=== PATIENT | female | born 1955 | race Two or more races ===

== ENCOUNTER 2024-08-23 14:16 | Outpatient (CLI) | payer OTHER | END 2024-08-23 14:20 | disposition home or self-care (01) | LOC: RAD 14:16 | PROVIDERS: ATTEND Orthopaedic Surgery Orthopaedic Trauma | DX: Z01.811 Encounter for preprocedural respiratory examination (principal) ==

== ENCOUNTER 2025-01-17 14:14 | Outpatient (CLI) | payer OTHER | END 2025-01-17 14:23 | disposition home or self-care (01) | LOC: RAD 14:14 | PROVIDERS: ATTEND General Practice | DX: M25.562 Pain in left knee (principal); M25.561 Pain in right knee ==

== ENCOUNTER 2025-02-08 08:33 | Outpatient (CLI) | payer OTHER ==
[2025-02-08 09:52] LABS: URINE APPEARANCE Clear; URINE BILIRRUBIN Negative (NEGATIVE); URINE BLOOD Negative; URINE COLOR Yellow; URINE KETONE Negative (NEGATIVE); URINE LEUKOCYTE Negative; URINE NITRATE Negative; URINE UROBILINOGEN 0.2 E.U./dl
[2025-02-08 09:53] LABS: URINE BACTERIA 19.2 uL (0.0-1933); URINE EPITHELIAL CELLS 7.9 uL (0.0-38.8); URINE WBC 2.0 uL (0.0-23.2)
[2025-02-08 10:05] LABS: URINE CAST 0.58 uL (0.0-1.40); URINE GLUCOSE >=1000 MG/DL (NEGATIVE); URINE PROTEIN 100 (NEGATIVE); URINE RBC 0.8 uL (0.0-20.8)
[2025-02-08 10:11] LABS: BASO % 0.7 % (0.1-1.2); EOS # 0.11 (0.04-0.54); EOS % 1.5 % (0.7-7.0); LYMPH # 3.07 (1.18-3.74); LYMPH % 41.2 % (19.3-53.1); MEAN PLATELET VOLUME 11.20 fl (9.4-12.4); MONO # 0.65 (0.24-0.82); MONO % 8.7 % (4.7-12.5); NEUT # 3.56 (1.56-6.13); NEUT % 47.8 % (34.0-71.1); RED CELL DISTRIBUTION WIDTH 14.2 % (11.6-14.4)
[2025-02-08 10:38] LABS: ALT/SGPT 49.0 U/L (12-78); AST/SGOT 35.0 U/L (15-37); BILIRUBIN TOTAL 0.38 mg/dL (0.3-1.2); BUN CREA RATIO 15.0 (7.0-25.0); CHOL HDL RATIO 2.9 (0-5.0); CREATININE SERUM 1.62 mg/dL (0.55-1.02); GFR 31.32; GLOBULINA 4.6 G/DL (2.4-3.5); GLUCOSE FASTING 175.0 mg/dL (65-100); HDL 53.0 mg/dl (40-60); LDL 35.0 mg/dl (0-130); OSMOLALITY SERUM 290.0 MOSM/KG (275-295); TSH 2.82 uIU/mL (0.358-3.74); VLDL 64.0 (0-39)
== END 2025-02-08 08:55 | disposition home or self-care (01) ==
LOC: LAB 08:33
DX: I11.9 Hypertensive heart disease without heart failure (principal); E78.9 Disorder of lipoprotein metabolism, unspecified; E03.9 Hypothyroidism, unspecified; Z11.9 Encounter for screening for infectious and parasitic diseases, unspecified; E11.9 Type 2 diabetes mellitus without complications

== ENCOUNTER 2025-02-25 08:26 | Outpatient (CLI) | payer OTHER | END 2025-02-25 08:29 | disposition home or self-care (01) | LOC: TOM 08:26 | DX: I63.9 Cerebral infarction, unspecified (principal) ==

== ENCOUNTER 2025-03-25 07:14 | Outpatient (CLI) | payer OTHER | END 2025-03-25 07:17 | disposition home or self-care (01) | LOC: MRI 07:14 | PROVIDERS: ATTEND Anesthesiology | DX: M54.50 Low back pain, unspecified (principal); M54.17 Radiculopathy, lumbosacral region | CPT/HCPCS: 72148 ==